=== PATIENT | female | born 1955 | race American Indian/Alaskan Native ===

== ENCOUNTER 2016-05-27 23:11 | Emergency (ER) | payer OTHER ==
[2016-05-28 00:08] LABS: Basophils % (Auto) 0.7 % (0.0-1.8); Eosinophils % (Auto) 1.9 % (0.0-4.3); Hematocrit 39.6 % (30.3-42.9); Mean Corpuscular HGB Conc 33 % (30-34); Mean Corpuscular Hemoglobin 29 pg (28-32); Mean Corpuscular Volume 88 fl (79-97); Platelet Count 233 K/mm3 (140-440); Red Blood Count 4.49 M/mm3 (3.65-5.03); Red Cell Distribution Width 14.6 % (13.2-15.2); White Blood Count 9.2 K/mm3 (4.5-11.0)
[2016-05-28 00:30] LABS: Anion Gap 18 mmol/L; Blood Urea Nitrogen 14 mg/dL (7-17); Calcium 8.7 mg/dL (8.4-10.2); Carbon Dioxide 23 mmol/L (22-30); Chloride 105.2 mmol/L (98-107); Glucose 128 mg/dL (65-100); Potassium 3.8 mmol/L (3.6-5.0); Sodium 142 mmol/L (137-145)
[2016-05-28] MEDS ORDERED: LIDOCAINE VISCOUS 2% PO ONE (01:01)
[2016-05-28] MEDS ORDERED: ALUM-MAG HYDROX-SIMETH 200-200-20MG/5ML PO ONE (01:01)
--- NOTE | 2016-05-28 01:16 | Emergency Department Report ---
ED Chest Pain HPI - General Chief Complaint: Chest Pain Stated Complaint: CHEST PAIN Time Seen by Provider: 05/28/16 00:54 Source: patient Mode of arrival: Ambulatory Limitations: No Limitations - History of Present Illness Initial Comments: 60-year-old female the past medical history diabetes, GERD, hypertension, and hyperlipidemia presents to the hospital complains of right-sided chest pain started at 10 PM. Pain described as a gas-like feeling. Pain subsided some upon arrival. Patient feels if she could belch he would alleviate her pain. Patient is 7/10 intensity. Contrary to triage she denies any aggravating or alleviating factors. She denies nausea, vomiting, diarrhea, cough, fever, shortness of breath, or diaphoresis. She had a recent negative cardiac stress test. Severity scale (0 -10): 7 - Related Data Home Medications Medication Instructions Recorded Confirmed Last Taken AtorvaSTATin [Lipitor] 40 mg PO QDAY 05/28/16 05/28/16 Unknown Cod Liver Oil 1 each PO QDAY 05/28/16 05/28/16 Unknown Diltiazem HCl [Diltiazem ER] 300 mg PO QDAY 05/28/16 05/28/16 Unknown Esomeprazole Magnesium [NexIUM] 40 mg PO QDAY 05/28/16 05/28/16 Unknown Magnesium Oxide [Magnesium] 500 mg PO QDAY 05/28/16 05/28/16 Unknown Sitagliptin Phosphate [Januvia] 100 mg PO QDAY 05/28/16 05/28/16 Unknown Telmisartan [Micardis] 80 mg PO QDAY 05/28/16 05/28/16 Unknown Vitamin B Complex [B Complex] 1 each PO DAILY 05/28/16 05/28/16 Unknown Zinc 50 mg PO QDAY 05/28/16 05/28/16 Unknown Previous Rx's Medication Instructions Recorded Last Taken Type Famotidine [Pepcid] 20 mg PO BID #60 tablet 05/28/16 Unknown Rx Mag Hydrox/Al Hydrox/Simeth 30 ml PO QID PRN #1 bottle 05/28/16 Unknown Rx [Maalox Advanced Suspension] Allergies Allergy/AdvReac Type Severity Reaction Status Date / Time azithromycin [From Zithromax] Allergy Swelling Verified 05/27/16 23:22 cephalexin monohydrate Allergy Anaphylaxis Verified 05/27/16 23:22 [From Keflex] MERCEDES score - Mercedes Score Age > 65: (0) No Aspirin use within the Past 7 Days: (0) No 3 or more CAD Risk Factors: (1) Yes 2 or more Angina events in past 24 hrs: (0) No Known CAD with more than 50% Stenosis: (0) No Elevated Cardiac Markers: (0) No ST Deviation Greater than 0.5mm: (0) No MERCEDES Score: 1 ED Review of Systems ROS: Stated complaint: CHEST PAIN Other details as noted in HPI Comment: All other systems reviewed and negative Other: Constitutional: No fevers chills Eyes: No eye pain visual changes ENT: No ear pain or throat pain Neck: Denies pain Respiratory: Denies cough wheezing shortness of breath Cardiovascular: Denies palpitations, syncope GI: Denies abdominal pain, nausea, vomiting, diarrhea : Denies dysuria Musculoskeletal: Denies back pain, joint swelling Skin: Denies rash, lesions, erythema Neurologic: Denies headache, numbness, weakness Psychiatric: Denies suicidal ideation, hallucinations ED Past Medical Hx - Past Medical History Previous Medical History?: Yes Hx Hypertension: Yes Hx Diabetes: Yes Hx GERD: Yes Additional medical history: hyperlipidemia - Surgical History Past Surgical History?: Yes Hx Cholecystectomy: Yes Additional Surgical History: hysterectomy, R knee replacement - Social History Smoking Status: Never Smoker Substance Use Type: Alcohol - Medications Home Medications: Home Medications Medication Instructions Recorded Confirmed Last Taken Type AtorvaSTATin [Lipitor] 40 mg PO QDAY 05/28/16 05/28/16 Unknown History Cod Liver Oil 1 each PO QDAY 05/28/16 05/28/16 Unknown History Diltiazem HCl [Diltiazem ER] 300 mg PO QDAY 05/28/16 05/28/16 Unknown History Esomeprazole Magnesium [NexIUM] 40 mg PO QDAY 05/28/16 05/28/16 Unknown History Famotidine [Pepcid] 20 mg PO BID #60 tablet 05/28/16 Unknown Rx Mag Hydrox/Al Hydrox/Simeth 30 ml PO QID PRN #1 bottle 05/28/16 Unknown Rx [Maalox Advanced Suspension] Magnesium Oxide [Magnesium] 500 mg PO QDAY 05/28/16 05/28/16 Unknown History Sitagliptin Phosphate [Januvia] 100 mg PO QDAY 05/28/16 05/28/16 Unknown History Telmisartan [Micardis] 80 mg PO QDAY 05/28/16 05/28/16 Unknown History Vitamin B Complex [B Complex] 1 each PO DAILY 05/28/16 05/28/16 Unknown History Zinc 50 mg PO QDAY 05/28/16 05/28/16 Unknown History ED Physical Exam - General Limitations: No Limitations - Other Other exam information: General: No limitations, patient is alert in no acute distress Head exam: Atraumatic, normocephalic Eyes exam: Normal appearance ENT: Moist mucous membrane, normal oropharynx Neck exam: Normal inspection, full range of motion, no meningismus nontender Respiratory exam: Clear to auscultation bilateral, no wheezes, rales, crackles Cardiovascular: Normal rate and rhythm, normal heart sounds, chest was nontender Abdomen: Soft, nondistended, and nontender, with normal bowel sounds, no rebound, or guarding Extremity: Full range of motion normal inspection no deformity, no calf tenderness or edema Back: Normal Inspection, full range of motion, no tenderness Neurologic: Alert, oriented x3, cranial nerves intact, no motor or sensory deficit Psychiatric: normal affect, normal mood Skin: Warm, dry, intact ED Course Vital Signs 05/27/16 05/27/16 05/27/16 23:22 23:25 23:46 Temperature 98.8 F 98.1 F Pulse Rate 59 L 62 Respiratory 20 13 18 Rate Blood Pressure 116/63 [Left] Blood Pressure 124/79 [Right] O2 Sat by Pulse 100 97 98 Oximetry - Reevaluation(s) Reevaluation #1: 05/28/16 01:16 viscous lidocaine and Maalox ordered ED Medical Decision Making - Lab Data Result diagrams: 05/27/16 23:58 05/27/16 23:58 Lab Results 05/27/16 05/27/16 Range/Units 23:58 23:58 WBC 9.2 (4.5-11.0) K/mm3 RBC 4.49 (3.65-5.03) M/mm3 Hgb 13.0 (10.1-14.3) gm/dl Hct 39.6 (30.3-42.9) % MCV 88 (79-97) fl MCH 29 (28-32) pg MCHC 33 (30-34) % RDW 14.6 (13.2-15.2) % Plt Count 233 (140-440) K/mm3 Lymph % (Auto) 21.8 (13.4-35.0) % [place] % (Auto) 5.9 (0.0-7.3) % Eos % (Auto) 1.9 (0.0-4.3) % Baso % (Auto) 0.7 (0.0-1.8) % Lymph # 2.0 (1.2-5.4) K/mm3 [place] # 0.5 (0.0-0.8) K/mm3 Eos # 0.2 (0.0-0.4) K/mm3 Baso # 0.1 (0.0-0.1) K/mm3 Seg Neutrophils % 69.7 (40.0-70.0) % Seg Neutrophils # 6.4 (1.8-7.7) K/mm3 Sodium 142 (137-145) mmol/L Potassium 3.8 (3.6-5.0) mmol/L Chloride 105.2 (98-107) mmol/L Carbon Dioxide 23 (22-30) mmol/L Anion Gap 18 mmol/L BUN 14 (7-17) mg/dL Creatinine 0.7 (0.7-1.2) mg/dL Estimated GFR > 60 ml/min BUN/Creatinine Ratio 20.00 % Glucose 128 H (65-100) mg/dL Calcium 8.7 (8.4-10.2) mg/dL Troponin T < 0.010 (0.00-0.029) ng/mL - EKG Data -: EKG Interpreted by Me (ems: sinus 67, LAFB no stemi) - Radiology Data Radiology results: image reviewed (cxr: naf) - Medical Decision Making Patient has relieved after receiving Maalox and viscous lidocaine. WIll Be discharged with medication for indigestion. - Differential Diagnosis atypical chest pain, musculoskeletal pain, dyspepsia Critical Care Time: No Critical care attestation.: If time is entered above; I have spent that time in minutes in the direct care of this critically ill patient, excluding procedure time. ED Disposition Clinical Impression: Indigestion Disposition: DISCHARGED TO HOME OR SELFCARE Is pt being admited?: No Does the pt Need Aspirin: No Condition: Stable Instructions: Gastroesophageal Reflux Disease (ED) Additional Instructions: Take the medication as prescribed. Follow-up with your doctor. Return if symptoms worsen. Prescriptions: Famotidine [Pepcid] 20 mg PO BID #60 tablet Mag Hydrox/Al Hydrox/Simeth [Maalox Advanced Suspension] 30 ml PO QID PRN #1 bottle PRN Reason: Indigestion Referrals: PRIMARY CARE, [Primary Care Provider] - 3-5 Days Time of Disposition: 02:51
[2016-05-28 03:19] VITALS: BP 125/64
--- NOTE | 2016-05-28 08:00 | XRay Report ---
Chest 2 views: History: Cough. Findings: Borderline cardiomegaly. Trachea is midline. No consolidation, pneumothorax or pleural effusion. Impression: No acute cardiopulmonary findings.
== END 2016-05-28 03:20 | disposition home or self-care (01) ==
LOC: ED 23:11
DX: K30 Functional dyspepsia (principal); I10 Essential (primary) hypertension; E11.9 Type 2 diabetes mellitus without complications; K21.9 Gastro-esophageal reflux disease without esophagitis; E78.00 Pure hypercholesterolemia, unspecified
CPT/HCPCS: 36415; 71020; 80048; 84484; 85025

== ENCOUNTER 2016-10-19 06:16 | Day surgery (SDC) | payer OTHER ==
[2016-10-19] MEDS ORDERED: DIPRIVAN 10 MG/ML IV ONE ×2 (07:15→08:43)
[2016-10-19] MEDS ORDERED: WATER FOR IRRIG STERILE IR ONE (07:33)
--- NOTE | 2016-10-19 07:38 | Anesthesia Day of Surgery ---
Anesthesia Day of Surgery - Day of Surgery Patient Examined: Yes Patient H&P Reviewed: Yes Patient is NPO: Yes Beta Blockers: Yes
--- NOTE | 2016-10-19 07:38 | Anesthesia Consultation ---
Anesthesia Consult and Med Hx Date of service: 10/19/16 - Airway Anesthetic Teeth Evaluation: Good ROM Head & Neck: Adequate Mental/Hyoid Distance: Adequate Mallampati Class: Class II Intubation Access Assessment: Probably Good - Pulmonary Exam CTA: Yes - Cardiac Exam Cardiac Exam: RRR - Pre-Operative Health Status ASA Pre-Surgery Classification: ASA3 Proposed Anesthetic Plan: MAC - Pulmonary Hx Smoking: No Hx Sleep Apnea: Yes - Cardiovascular System Hx Hypertension: Yes - Central Nervous System Hx Psychiatric Problems: No - Other Systems Hx Alcohol Use: No Hx Substance Use: No Hx Cancer: No Hx Obesity: Yes
[2016-10-19] MEDS ORDERED: NACL 0.9% 1000 ML 1,000 ML IV SCH (08:00)
--- NOTE | 2016-10-19 08:55 | Post Anesthesia Evaluation ---
- Post Anesthesia Evaluation Patient Participated: Yes Airway Patent: Yes Stable Respiratory Function: Yes Nausea/Vomiting: No Temp > 96.8F: Yes Pain Manageable: Yes Adequeate Hydration: Yes Anesthesia Complications: No Block Receding Appropriately: Not Applicable Patient on Ventilator: No
[2016-10-19 09:18] VITALS: BP 132/83
--- NOTE | 2016-10-20 22:47 | Operative Report ---
PREOPERATIVE DIAGNOSES: Dysphagia and gastroesophageal reflux disease. POSTOPERATIVE DIAGNOSES: 1. Diffuse gastric polyposis. 2. Type 1, 2 cm sliding hiatal hernia. PROCEDURE: EGD with biopsy, snare biopsy of one large 2 cm polyp in the stomach and several punch biopsies of the other gastric and antral polyposis diseases. DESCRIPTION OF PROCEDURE: The patient was placed on the operative gurney in the dorsal supine position and following satisfactory induction of sedation. She was then placed in the left lateral decubitus position. A bite block placed in her mouth in order to protect her teeth. Then, following satisfactory induction of propofol anesthesia under MAC, the patient's posterior oropharynx was then intubated with the endoscope and passed down to the posterior oropharynx and into the upper esophagus, the mid esophagus, into the lower esophageal sphincter, and inside the abdominal cavity. This patient was preop for a gastric sleeve and therefore inspection of the intragastric contents was performed to make sure that there were no lesions that were identified that would prevent us from performing intragastric sleeve. However findings were that the patient had multiple areas of polyposis throughout the patient's body of the stomach and antrum of the stomach. The patient had 1 large pedunculated gastric polyp and several sessile polyps throughout the body of the stomach as well as through the antrum. We retroflexed the scope, the patient also had a 2 cm hiatal hernia and that was a sliding type 1, hiatal hernia. Because of the multiple polyposis type lesions, we decided to take some of these lesions to send to the pathologist to make sure that these were either benign or possibly cancer that would change our approach to this particular patient. The large pedunculated polyp was approached and using an electrocautery snare, this lesion was taken across its base and snared, and using electrocautery, the stalk of the polyp was cut and cauterized for hemostasis. The polyp was retrieved using the basket and sent to the pathologist for surgical sectioning. Several other polyps were then biopsied to see if these lesions were of a benign or malignant nature. After adequate hemostasis was identified, we then proceeded to desufflate the stomach and the scope was removed. The patient tolerated the procedure well and sent back to the recovery room in satisfactory condition. JOB# [id number] ADE/MARGARITO
== END 2016-10-19 06:17 | disposition home or self-care (01) ==
LOC: GIO 06:16
PROVIDERS: ATTEND Specialist
DX: K31.7 Polyp of stomach and duodenum (principal); K44.9 Diaphragmatic hernia without obstruction or gangrene; I10 Essential (primary) hypertension; K21.9 Gastro-esophageal reflux disease without esophagitis; G47.33 Obstructive sleep apnea (adult) (pediatric); E78.00 Pure hypercholesterolemia, unspecified; E11.9 Type 2 diabetes mellitus without complications; E66.01 Morbid (severe) obesity due to excess calories; Z68.41 Body mass index [BMI] 40.0-44.9, adult; Z90.49 Acquired absence of other specified parts of digestive tract; Z98.890 Other specified postprocedural states; Z88.5 Allergy status to narcotic agent; Z79.899 Other long term (current) drug therapy; Z82.49 Family history of ischemic heart disease and other diseases of the circulatory system; Z83.49 Family history of other endocrine, nutritional and metabolic diseases
CPT/HCPCS: 43239; 43251; 82962; 88305; 88342; J2704; J7030